=== PATIENT | female | born 1990 | race Caucasian/White ===

== ENCOUNTER 2016-06-11 05:23 | Emergency (ER) | payer OTHER ==
[~2016-06-11 05:23] MED LIST: AMOXICILLIN500 M1 PO; BACTRIM DS TABL1 TAB PO; FLEXERIL10 M1 PO; LATUDA40 MG PO; LORTAB 5/500 TA1 TA1 PO; MACROBID100 MG; MACROBID100 MG PO; MOBIC PO; NAPROSYN375 MG PO; NO MEDICATIONS; ORUDIS75 M1 PO; PHENERGAN DM1 ML PO; PRENATAL1 TA1 PO
== END 2016-06-11 05:30 | disposition home or self-care (01) ==
LOC: CED 05:23
DX: R05 Cough (principal); N92.6 Irregular menstruation, unspecified; F17.200 Nicotine dependence, unspecified, uncomplicated
CPT/HCPCS: 99283